=== PATIENT | male | born 1960 | race Caucasian/White ===

== ENCOUNTER 2021-08-14 07:30 | Day surgery (SDC) | payer OTHER ==
[2021-08-14] VITALS (7 sets, daily range): BP systolic 117–158; BP diastolic 68–87
[~2021-08-14] VITALS: Ht 180.3 cm; Wt 71.5 kg
[~2021-08-14 07:30] MED LIST: ACET-2119 PO; CYCL-1 PO; GABA-532 PO; GLIP5TAB13 PO; METF-438 PO; MORP60TA32 PO; OMEP20CA15 PO; SIMV80TA89 PO; TRAZ-256 PO; VENL50TA4 PO
[2021-08-14] MEDS ORDERED: albumin 25% 100mL bottle x 1 IV PRN (08:10)
[2021-08-14] MEDS ORDERED: LIDOcaine 1% 30ml preserv. free vial IJ STA (08:11)
[2021-08-14] MEDS ORDERED: TRAZ150T78 PO (08:57)
[2021-08-14] MEDS ORDERED: IBUP-1985 PO (08:57)
[2021-08-14] MEDS ORDERED: SIMV40TA PO (08:57)
[2021-08-14] MEDS ORDERED: VENL75TA4 PO (08:57)
[2021-08-14] MEDS ORDERED: ROPI0.5T4 PO (08:57)
[2021-08-14] MEDS ORDERED: MSC30T PO (08:57)
[2021-08-14] MEDS ORDERED: INSU100V9 SQ (08:57)
[2021-08-14] MEDS ORDERED: MELA3TAB41 PO (08:57)
[2021-08-14] MEDS ORDERED: FLU VACC QS2021-22(6MOS UP)/PF 60 MCG/0.5 ML SYRINGE IM ONE (11:40)
[2021-08-14] MEDS ORDERED: pneumococcal 23-VAL P-sac vacc 25 mcg/0.5ml vial IMVAC ONE (11:40)
== END 2021-08-14 10:55 | disposition home or self-care (01) ==
LOC: SSTAY O 07:30
PROVIDERS: ATTEND Radiology Vascular & Interventional Radiology
DX: R18.8 Other ascites (principal); E11.40 Type 2 diabetes mellitus with diabetic neuropathy, unspecified; I10 Essential (primary) hypertension; K21.9 Gastro-esophageal reflux disease without esophagitis; E78.5 Hyperlipidemia, unspecified; F32.9 Major depressive disorder, single episode, unspecified; J44.9 Chronic obstructive pulmonary disease, unspecified; Z85.07 Personal history of malignant neoplasm of pancreas; F17.210 Nicotine dependence, cigarettes, uncomplicated; Z79.84 Long term (current) use of oral hypoglycemic drugs; Z79.899 Other long term (current) drug therapy
CPT/HCPCS: 49083; J2001; P9047